=== PATIENT | male | born 1970 | race African-American/Black ===

== ENCOUNTER 2017-03-02 16:00 | Inpatient (IN) | payer OTHER ==
--- NOTE | ~2017-03-02 | PN ---
Unit #: [id number] #: [id number] Patient: QUINTON RAMOS [id number] [facility] [address] [place] [address] [id number] MR#: [id number] NAME: QUINTON RAMOS ROOM: P114 Age: 46 Sex: M Admission Date: 03/02/2017 : 1970 Attending Physician: Herberth Andrews M.D. Admitting Physician: Herberth Andrews M.D. Primary Care Physician: Krista Walter PROGRESS NOTES DATE 03/05/2017 DISCUSSION The patient is very seclusive to room but is pleasant and cooperative during today's interview. He continues to endorse positive auditory hallucinations but is tolerating medications well. He continues to feel unsafe outside the hospital. Dictated by... Herberth Andrews M.D. CB/elvia TD: 03/05/2017 12:58 JOB #: [id number] ADRIÁN PROGRESS NOTES Page 1 of 1 X Herberth Andrews MD PROGRESS NOTE
--- NOTE | ~2017-03-02 | DS ---
Unit #: [id number] #: [id number] Patient: QUINTON RAMOS [id number] [place] [address] [id number] MR#: [id number] NAME: QUINTON RAMOS. ROOM: 14 Age: 46 Sex: M Admission Date: 03/02/2017 : 1970 Discharge Date: 03/07/2017 Attending Physician: Herberth Andrews M.D. Primary Care Physician: Robbin Sargent M.D. DISCHARGE SUMMARY REASON FOR ADMISSION The patient is a 46-year-old male, admitted with recurrent psychotic symptoms after a period of medication noncompliance. HOSPITAL COURSE The patient was admitted to the [address] [place] [address] unit and restarted on previously prescribed psychotropic medications including lithium carbonate and Risperdal. He tolerated re-initiation of medications without complaint. He was watched for signs or symptoms of alcohol withdrawal, but exhibited none. By 03/07/2017, the patient was in bright spirits and comply with medications and smith routine. He exhibited no signs or symptoms of withdrawal. Denied any psychotic symptoms or suicidal ideation. Discharge was ordered. FINAL DIAGNOSES Schizoaffective disorder; alcohol use disorder. DISPOSITION ON DISCHARGE The patient is discharged on the following medications: [place] carbonate 300 mg b.i.d. for mood stabilization and Risperdal 3 mg b.i.d. for psychosis. DISCHARGE INSTRUCTIONS No dietary or physical restrictions were placed upon the patient at the time of discharge. FOLLOWUP Followup will take place through the auspices of appropriate community mental health and chemical dependency treatment resources. PROGNOSIS The patient's prognosis is considered fair. Dictated by... Herberth Andrews M.D. CB/noal TD: 03/07/2017 14:37 JOB #: [id number] Unit #: [id number] #: [id number] Patient: QUINTON RAMOS DISCHARGE SUMMARY Page 1 of 1 X Herberth Andrews MD X DISCHARGE SUMMARY
--- NOTE | ~2017-03-02 | PT ---
Unit #: [id number] #: [id number] Patient: QUINTON RAMOS [id number] [place] [address] [id number] I MR#: [id number] NAME: QUINTON RAMOS. ROOM: 14 Age: 46 Sex: M Admission Date: 03/02/2017 : 1970 Attending Physician: Herberth Andrews M.D. Admitting Physician: Herberth Andrews M.D. Primary Care Physician: Robbin Sargent M.D. PSYCHOLOGICAL TESTING DATE 03/04/2017 DISCUSSION The patient is active within the therapeutic milieu. He denies that he had been noncompliant with medications prior to coming to the hospital but continues to report some auditory hallucinations. We may consider adjustments in the patient's dose pending the results of his lithium level, and we will also need to consider possible increase in the patient's Risperdal dose. Dictated by... Herberth Andrews M.D. CB/ely TD: 03/04/2017 13:48 JOB #: [id number] PSYCHOLOGICAL TESTING Page 1 of 1 X Herberth Andrews MD X PSYCHOLOGICAL TESTING
--- NOTE | ~2017-03-02 | PN ---
Unit #: [id number] #: [id number] Patient: QUINTON RAMOS [id number] [facility] [address] [place] [address] [id number] I MR#: [id number] NAME: QUINTON RAMOS ROOM: P114 Age: 46 Sex: M Admission Date: 03/02/2017 : 1970 Attending Physician: Herberth Andrews M.D. Admitting Physician: Herberth Andrews M.D. Primary Care Physician: Krista Walter PROGRESS NOTES DATE 03/06/2017 DISCUSSION The patient reports some improvement in mood symptoms and reports reduction in auditory hallucinations with re-initiation of medications. Should he sustain progress discharge could take place as early as tomorrow. Dictated by... Herberth Andrews M.D. CB/filomena TD: 03/06/2017 15:09 JOB #: [id number] ADRIÁN PROGRESS NOTES Page 1 of 1 X Herberth Andrews MD X PROGRESS NOTE
--- NOTE | ~2017-03-02 | HP ---
Unit #: [id number] #: [id number] Patient: QUINTON RAMOS [id number] [place] [address] [id number] I MR#: [id number] NAME: QUINTON RAMOS. ROOM: 14 Age: 46 Sex: M Admission Date: 03/02/2017 : 1970 Attending Physician: Herberth Andrews M.D. Admitting Physician: Herberth Andrews M.D. Primary Care Physician: Robbin Sargent M.D. HISTORY AND PHYSICAL HISTORY OF PRESENT ILLNESS The patient is a 46-year-old male admitted to [address] [place] [address] on 03/02/2017 for psychosis. PAST MEDICAL HISTORY The patient denies. PAST SURGICAL HISTORY The patient denies. SOCIAL HISTORY He collects Social Security. He lives with his mother. He smokes one pack of cigarettes daily and drinks eight 24 ounces of beer a day. FAMILY MEDICAL HISTORY Noncontributory. ALLERGIES No known drug allergies. CURRENT MEDICATIONS 1. [place] 2. Risperdal REVIEW OF SYSTEMS CONSTITUTIONAL: No fever or chills. HEENT: Denies any sore throat, ear pain or runny nose. CARDIOVASCULAR: Denies chest pain, irregular heart rhythm or palpitations. CHEST: Denies shortness of breath or cough. No hemoptysis. GASTROINTESTINAL: Denies nausea, vomiting, diarrhea or chronic constipation. ENDOCRINE: Denies history of increased thirst or urination. No recent significant weight loss or gain. GENITOURINARY: Denies dysuria, frequency, or hematuria. SKIN: Denies any rashes. HEMATOLOGIC: Denies history of increased bleeding or bruising. MUSCULOSKELETAL: Denies any hot, swollen joints. No generalized muscle pain. NEUROLOGIC: Denies problems with vision or speech. No frequent, severe headaches. No numbness, tingling or weakness in any extremities. Denies loss of bladder or bowel control. PHYSICAL EXAM Unit #: [id number] #: [id number] Patient: QUINTON RAMOS GENERAL: He is awake, alert and oriented in no acute distress. VITAL SIGNS: Temperature 98.3, heart rate 67, respiration 17, blood pressure 118/73. HEIGHT: 5'8". WEIGHT: 148 pounds. SKIN: Warm and dry without rash or lesion. HEENT: Normocephalic. TMs not viewed. Oral and nasal passages clear. Conjunctivae clear. PERRLA. EOMs intact. NECK: Supple without lymphadenopathy or thyromegaly. HEART: Regular rate and rhythm without murmur. LUNGS: Clear. ABDOMEN: Soft, nontender. : Not done. EXTREMITIES: No evidence of cyanosis, clubbing or edema. Moves all without focal deficit. NEUROLOGICAL: Grossly within normal limits. Cranial Nerves: II: Visual fuentes are intact. III, IV AND : Extraocular movements are intact. Pupils are equal, round and reactive to light. V: Facial sensation is grossly normal. VII: Facial movements and expression are normal. VIII: Auditory acuity grossly intact. IX, X: Uvula is midline. Phonation is normal. XI: Patient shrugs shoulders and turns head normally. XII: Tongue protrudes in the midline. Sensory and Motor Function: Sensory and motor sensation is grossly normal. Motor: moves all extremities well. IMPRESSION 1. Psychiatric admission. 2. Nicotine dependence. 3. Alcohol abuse. RECOMMENDATIONS Psychiatric per psychiatrist. MEDICAL: No contraindication to participate in facility activities. MEDICAL PROGNOSIS Good. MEDICAL CONDITION Stable. Dictated by... Carley Catalan/henna TD: 03/03/2017 19:16 JOB #: [id number] Unit #: [id number] #: [id number] Patient: QUINTON RAMOS HISTORY AND PHYSICAL Page 1 of 1 X CHASTITY IBARRA APRN HISTORY AND PHYSICAL
--- NOTE | ~2017-03-02 | PA ---
Unit #: [id number] #: [id number] Patient: QUINTON RAMOS [id number] [place] [address] [id number] MR#: [id number] NAME: QUINTON RAMOS. ROOM: 14 Age: 46 Sex: M Admission Date: 03/02/2017 : 1970 Date of Assessment: 03/03/2017 Attending Physician: Herberth Andrews M.D. Admitting Physician: Herberth Andrews M.D. Primary Care Physician: Robbin Sargent M.D. PSYCHIATRIC ASSESSMENT IDENTIFYING INFORMATION The patient is a 46-year-old male admitted with increasing auditory hallucinations. INFORMANT(S) The patient, reliability good. CHIEF COMPLAINT None given HISTORY OF PRESENT ILLNESS The patient is a 46-year-old male who carries a diagnosis of schizoaffective disorder. He reports that he has been prescribed Risperdal and lithium in the past but has apparently been noncompliant with these medications for some time. He reports occurrence of auditory hallucinations of command type. He also reports that he has been using spice and drinks approximately eight beers daily. He has not used beer in the last three days. The patient reports that he has been seen at [facility] in the past but at this point does not seem to be involved with outpatient treatment. The patient has been having increased outbursts at home and had been reporting intrusive thoughts regarding suicide prior to coming to the hospital. When seen today the patient is gently pleasant but evasive during attempted interview. He is continuing to report positive auditory hallucinations in which to "restart his medication." PAST PSYCHIATRIC HISTORY As above PAST MEDICAL HISTORY Noncontributory MEDICATIONS [place] and Risperdal ALLERGIES None FAMILY HISTORY Noncontributory SOCIAL HISTORY The patient lives with his mother. He is disabled by his chronic Unit #: [id number] #: [id number] Patient: QUINTON RAMOS A psychiatric illness and does not work outside of the home. Substance use history is described previously and he is a smoker. MENTAL STATUS EXAMINATION At this time reveals the patient to be a well-developed, well-nourished male, appearing his stated age. He is in no apparent physical distress at the time of examination. He is awake, alert, and oriented in all spheres. His mood is mildly dysphoric. His affect blunted. Speech is impoverished but generally relevant and coherent. There are no gross deficits in memory or cognition noted. Intelligence is judged to be in the average range based on fund of knowledge. The patient is cooperative throughout the interview. He is continuing to endorse positive suicidal ideation. He denies homicidal ideation. He reports positive command hallucinations as well as paranoid delusional thinking. His judgement and insight appear to be somewhat impaired. ASSETS AND LIABILITIES ASSETS: Motivation for change. LIABILITIES: Lack of resources, ongoing substance use. ADMITTING DIAGNOSES 1. Schizoaffective disorder 2. Hallucinogen use disorder 3. Alcohol use disorder PSYCHIATRIC PLAN/TREATMENT GOALS The patient remains hospitalized for safety and stabilization. We will restart previously prescribed lithium and Risperdal and we will watch for any signs of alcohol withdrawal instituting a routine detoxification protocol for alcohol. The patient will participate in appropriate smith and milieu activities with an estimate length in the hospital of seven days. Dictated by... Herberth Andrews M.D. SANJIV/henna TD: 03/03/2017 11:05 JOB #: [id number] PSYCHIATRIC ASSESSMENT Page 1 of 1 X Herberth Andrews MD X PSYCHIATRIC ASSESSMENT
== END 2017-03-07 17:02 | disposition home or self-care (01) | DRG 885 ==
LOC: P1S 17:45
PROC: HZ2ZZZZ Detoxification Services for Substance Abuse Treatment (ICD-10-PCS; principal; 2017-03-03)
DX: F25.9 Schizoaffective disorder, unspecified (principal); Z91.14 Patient's other noncompliance with medication regimen; F10.20 Alcohol dependence, uncomplicated; F17.210 Nicotine dependence, cigarettes, uncomplicated